=== PATIENT | female | born 1985 | race Two or more races ===

== ENCOUNTER 2018-07-09 15:25 | Inpatient (IN) | payer BC, OTHER ==
[~2018-07-09] VITALS: Ht 165.1 cm; Wt 52.2 kg
--- NOTE | 2018-07-09 15:45 | NUR ---
Pt was triaged and placed back in ER waiting room, no ER beds available at this time.
[2018-07-09] MEDS ORDERED: IBUP-1627 PO (15:47)
[2018-07-09 16:05] LABS: *BILIRUBIN,URIN 3+ (NEGATIVE); *BLOOD, URINE NEGATIVE (NEGATIVE); *COLOR,URINE AMBER (YELLOW); *KETONES,URINE 4+ (NEGATIVE); LEUKOCYTE ESTERASE ,URINE NEGATIVE (NEGATIVE); NITRITE, URINE POSITIVE (NEGATIVE); UGLUCOSE NEGATIVE (NEGATIVE)
[2018-07-09 16:06] LABS: *URINE HCG, QUAL NEGATIVE (NEGATIVE)
[2018-07-09 16:11] LABS: *CLARITY,URINE HAZY (CLEAR)
[2018-07-09 16:20] LABS: BACTERIA,URINE FEW /HPF (NONE SEEN); SQUAMOUS EPITHELIAL CELL,UR MODERATE /HPF (NONE SEEN)
[2018-07-09 16:21] LABS: MUCUS,URINE MANY /LPF (0-FEW)
[2018-07-09] MEDS ORDERED: KETOROLAC TROMETHAMINE 15 MG INJ IV ONE (16:45)
[2018-07-09] MEDS ORDERED: METOCLOPRAMIDE HCL 10 MG/2 ML VIAL IV ONE (16:45)
[2018-07-09] MEDS ORDERED: METOCLOPRAMIDE HCL 10 MG/2 ML VIAL ONE (16:54)
[2018-07-09] MEDS ORDERED: KETOROLAC TROMETHAMINE 15 MG INJ ONE (16:54)
[2018-07-09 17:10] LABS: BASOPHILS % (AUTO) 0.3 % (0.0-2.0); EOSINOPHILS % (AUTO) 0.1 % (0.0-7.0); HEMATOCRIT 43.8 % (31.2-41.9); HEMOGLOBIN 15.1 g/dL (10.9-14.3); LYMPHOCYTES # (AUTO) 0.6 K/uL (20.0-40.0); LYMPHOCYTES % (AUTO) 4.3 % (20.5-51.5); MEAN CORPUSCULAR HEMOGLOBIN 36.9 uug (24.7-32.8); MEAN CORPUSCULAR HGB CONC 34 g/dL (32.3-35.6); MEAN CORPUSCULAR VOLUME 107.1 fL (75.5-95.3); MONOCYTES # (AUTO) 0.8 K/uL (2.0-10.0); MONOCYTES % (AUTO) 6.4 % (0.0-11.0); NEUTROPHILS # (AUTO) 11.6 K/uL (1.8-8.9); NEUTROPHILS % (AUTO) 88.9 % (38.5-71.5); PLATELET COUNT (AUTO) 302 K/uL (179-408); RED BLOOD CELL COUNT(AUTO) 4.09 MIL/uL (3.63-4.92); WHITE BLOOD COUNT (AUTO) 13.1 K/uL (3.8-11.8)
[2018-07-09 17:20] LABS: CARBON DIOXIDE 20 mmol/L (21-32); CHLORIDE 94 mmol/L (98-107); CREATININE 0.7 mg/dL (0.6-1.3); GLUCOSE 116 mg/dL (74-106); POTASSIUM 4.2 mmol/L (3.5-5.1); UREA NITROGEN, BLOOD 9 mg/dL (7-18)
[2018-07-09 17:26] LABS: ALANINE AMINOTRANSFERASE 69 U/L (14-59); ALKALINE PHOSPHATASE 78 U/L (50-136); ASPARTATE AMINOTRANSFERASE 41 U/L (15-37); BILIRUBIN,DIRECT 0.2 mg/dL (0.0-0.2); BILIRUBIN,TOTAL 1.2 mg/dL (0.2-1.0); TOTAL PROTEIN, SERUM 7.7 g/dL (6.4-8.2)
[2018-07-09 17:29] LABS: LIPASE 8141 U/L (73-393)
[2018-07-09] MEDS ORDERED: HYDROMORPHONE 1 MG/1 ML DISP.SYRIN IV ONE (17:45)
[2018-07-09] MEDS ORDERED: HYDROMORPHONE 1 MG/1 ML DISP.SYRIN ONE (17:47)
--- NOTE | 2018-07-09 19:07 | NUR ---
Pending insurance clearance for admission,patient is resting comfortably on gurney with eyes closed, some relief with abdominal pains, tolerable at this time
--- NOTE | 2018-07-09 20:17 | NUR ---
Call received from patient's insurance company, they stated that they will establish a room at [facility]. Pending call with room availability and transfer information.
[2018-07-09] MEDS ORDERED: IV NORMAL SALINE 1000 ML BAG IV ONE (20:45)
--- NOTE | 2018-07-09 22:00 | NUR ---
Call received from Teri at patient's insurance company, authorization to admit given, authorization #[id number].
--- NOTE | 2018-07-09 22:26 | NUR ---
Pt. admitted to [facility], under care of Dr. Meyer Belongs List completed
[2018-07-09] MEDS ORDERED: Z GUARD REMEDY PASTE 57 GM TUBE TOP PRN (22:45)
[2018-07-09] MEDS ORDERED: ACETAMINOPHEN 325 MG TABLET PO PRN (22:45)
--- NOTE | 2018-07-09 22:45 | NUR ---
RECEIVED PATIENT VIA GURNEY FROM ER. PATIENT IS A/O X4. C/O IN ABDOMEN, 12/23. VSS. HEPLOCK INTACT AND PATENT NOTED TO RIGHT FA #20 GAUGE. ORIENTED PATIENT TO ROOM AND CALL LIGHT. CALL LIGHT IN REACH. ALL NEEDS ATTENDED. WILL CONTINUE TO MONITOR AND ASSESS.
[2018-07-09 22:59] VITALS: BP 120/86
[2018-07-09] MEDS: HYDROMORPHONE 1 MG/1 ML DISP.SYRIN IV PRN (23:03)
[2018-07-09] MEDS: IV NS 1000 ML 1,000 ML IV PRN (23:14)
[2018-07-10] MEDS: HYDROMORPHONE 1 MG/1 ML DISP.SYRIN IV PRN ×5 (03:53→23:19)
[2018-07-10 05:40] VITALS: BP 107/60
[2018-07-10] MEDS: IV NS 1000 ML 1,000 ML IV PRN ×3 (05:58→23:19)
--- NOTE | 2018-07-10 06:21 | NUR ---
PATIENT AWAKE. NO C/O PAIN AT THIS TIME. IVF INFUSING WELL. CALL LIGHT IN REACH.
[2018-07-10 07:23] LABS: ALANINE AMINOTRANSFERASE 43 U/L (14-59); ALKALINE PHOSPHATASE 57 U/L (50-136); ASPARTATE AMINOTRANSFERASE 23 U/L (15-37); BILIRUBIN,TOTAL 0.8 mg/dL (0.2-1.0); CARBON DIOXIDE 22 mmol/L (21-32); CHLORIDE 103 mmol/L (98-107); CHOLESTEROL 189 mg/dL (<200); CREATININE 0.5 mg/dL (0.6-1.3); GLUCOSE 83 mg/dL (74-106); HDL CHOLESTEROL 28 mg/dL (40-60); MAGNESIUM 1.4 mg/dL (1.8-2.4); PHOSPHOROUS 2.9 mg/dL (2.5-4.9); POTASSIUM 3.7 mmol/L (3.5-5.1); TOTAL PROTEIN, SERUM 5.7 g/dL (6.4-8.2); TRIGLYCERIDES 99 MG/DL (30-150); UREA NITROGEN, BLOOD 5 mg/dL (7-18)
[2018-07-10 07:24] LABS: BASOPHILS % (AUTO) 0.4 % (0.0-2.0); EOSINOPHILS # (AUTO) 0.2 K/uL (0.0-0.7); EOSINOPHILS % (AUTO) 2.6 % (0.0-7.0); LYMPHOCYTES # (AUTO) 0.8 K/uL (20.0-40.0); LYMPHOCYTES % (AUTO) 12.6 % (20.5-51.5); MEAN CORPUSCULAR HEMOGLOBIN 38.6 uug (24.7-32.8); MEAN CORPUSCULAR HGB CONC 35 g/dL (32.3-35.6); MEAN CORPUSCULAR VOLUME 108.8 fL (75.5-95.3); MONOCYTES # (AUTO) 0.6 K/uL (2.0-10.0); MONOCYTES % (AUTO) 10.4 % (0.0-11.0); NEUTROPHILS # (AUTO) 4.5 K/uL (1.8-8.9); PLATELET COUNT (AUTO) 207 K/uL (179-408); RED BLOOD CELL COUNT(AUTO) 3.17 MIL/uL (3.63-4.92)
[2018-07-10 07:32] LABS: WHITE BLOOD COUNT (AUTO) 6.1 K/uL (3.8-11.8)
[2018-07-10 07:33] LABS: HEMATOCRIT 34.5 % (31.2-41.9); HEMOGLOBIN 12.2 g/dL (10.9-14.3)
[2018-07-10 07:48] LABS: LIPASE 4922 U/L (73-393)
[2018-07-10 11:27] VITALS: BP 95/59
[2018-07-10 15:21] VITALS: BP 106/74
[2018-07-10] MEDS: MAGNESIUM SULFATE/D5W 100 ML IV SCH ×4 (16:18→19:51)
[2018-07-10 19:00] VITALS: BP 116/83
--- NOTE | 2018-07-10 20:00 | NUR ---
RECEIVED PATIENT AWAKE IN BED. A/O X4. VERY PLEASANT WHEN APPROACHED. DENIES ANY PAIN OR DISCOMFORT. NO RESP. DISTRESS NOTED. VSS. IVF INFUSING WELL TO RIGHT FA #20 GAUGE. CALL LIGHT IN REACH. ALL NEEDS ATTENDED.
--- NOTE | 2018-07-10 23:20 | NUR ---
GAVE NORCO FOR 8/10 PAIN SCALE ON HER ABDOMEN. PT STABLE .SAFETY AND COMFORT PROVIDED. WILL CONTINUE TO MONITOR.
[2018-07-11] MEDS: HYDROMORPHONE 1 MG/1 ML DISP.SYRIN IV PRN ×2 (03:24→08:02)
[2018-07-11 04:00] VITALS: BP 133/78
[2018-07-11] MEDS: IV NS 1000 ML 1,000 ML IV PRN ×2 (05:53→14:02)
[2018-07-11 06:21] LABS: BASOPHILS % (AUTO) 0.6 % (0.0-2.0); EOSINOPHILS # (AUTO) 0.3 K/uL (0.0-0.7); EOSINOPHILS % (AUTO) 4.9 % (0.0-7.0); HEMATOCRIT 31.3 % (31.2-41.9); LYMPHOCYTES # (AUTO) 1.1 K/uL (20.0-40.0); LYMPHOCYTES % (AUTO) 21.3 % (20.5-51.5); MEAN CORPUSCULAR HEMOGLOBIN 38.4 uug (24.7-32.8); MEAN CORPUSCULAR HGB CONC 35 g/dL (32.3-35.6); MEAN CORPUSCULAR VOLUME 109.1 fL (75.5-95.3); MONOCYTES # (AUTO) 0.6 K/uL (2.0-10.0); MONOCYTES % (AUTO) 10.9 % (0.0-11.0); NEUTROPHILS # (AUTO) 3.2 K/uL (1.8-8.9); NEUTROPHILS % (AUTO) 62.3 % (38.5-71.5); PLATELET COUNT (AUTO) 178 K/uL (179-408); RED BLOOD CELL COUNT(AUTO) 2.87 MIL/uL (3.63-4.92); WHITE BLOOD COUNT (AUTO) 5.1 K/uL (3.8-11.8)
[2018-07-11 06:35] LABS: CARBON DIOXIDE 24 mmol/L (21-32); CHLORIDE 103 mmol/L (98-107); CREATININE 0.5 mg/dL (0.6-1.3); GLUCOSE 80 mg/dL (74-106); LIPASE 1346 U/L (73-393); MAGNESIUM 1.9 mg/dL (1.8-2.4); POTASSIUM 3.6 mmol/L (3.5-5.1); UREA NITROGEN, BLOOD 3 mg/dL (7-18)
--- NOTE | 2018-07-11 07:20 | NUR ---
RECEIVED REPORT FROM BANK GUARD NURSE, PATIENT IN BED AWAKE, REPORTS PAIN BUT WANTS TO WAIT OUT THE PAIN A BIT LONGER, BED IN LOW POSITION, SIDE RAILS UP X2.
[2018-07-11 11:35] VITALS: BP 122/81
[2018-07-11] MEDS: ONDANSETRON 4 MG/2 ML VIAL IV PRN ×2 (11:59→19:00)
[2018-07-11] MEDS: HYDROCODONE/APAP 5-325MG TABLET PO PRN ×2 (11:59→19:00)
[2018-07-11 15:45] VITALS: BP 126/78
--- NOTE | 2018-07-11 19:38 | NUR ---
patient given discharge instructions, iv removed and instructed to decrease alcohol intake to prevent future incidents. Patient left on own, and refused to have wheelchair to discharge area.
== END 2018-07-11 19:39 | disposition home or self-care (01) | DRG 439 ==
LOC: ER 15:27 → MED 22:34
PROVIDERS: ADMIT Nurse Practitioner Acute Care; ATTEND Registered Nurse
DX: K85.20 Alcohol induced acute pancreatitis without necrosis or infection (principal); J98.11 Atelectasis; E87.1 Hypo-osmolality and hyponatremia; R18.8 Other ascites; K42.9 Umbilical hernia without obstruction or gangrene; K76.0 Fatty (change of) liver, not elsewhere classified; F17.210 Nicotine dependence, cigarettes, uncomplicated; F10.10 Alcohol abuse, uncomplicated; E86.0 Dehydration; Y90.9 Presence of alcohol in blood, level not specified
CPT/HCPCS: 36415; 70030-TC; 71045; 83690; 83735; 84100; 84703; 85025; 85730; A4663; G0378; J1170; J1885; J2405; J2765; J3475; J7030